=== PATIENT | female | born 1935 | race Caucasian/White ===

== ENCOUNTER 2017-07-11 17:28 | Inpatient (IN) | payer MEDICARE ==
[2017-07-11 17:43] VITALS: BMI 26.9
[2017-07-11] MEDS ORDERED: Sodium Chloride 0.9% 1,000 ML IV SCH (19:15)
[2017-07-11 19:33] LABS: BASO # 0.01 K/mm3 (0.0-2.0); BASO % 0.1 % (0.0-3.0); GRAN # 7.98 (1.4-6.5); GRAN % 85.3 % (50.0-68.0); HEMOGLOBIN 16.4 g/dL (12.0-16.0); LYMPH # 0.8 (1.2-3.4); LYMPH % 8.6 % (22.0-35.0); MEAN CELL VOLUME 89.9 fl (80.0-105.0); MEAN CORPUSCULAR HEMOGLOBIN 30.7 pg (25.0-35.0); MEAN CORPUSCULAR HGB CONC 34.1 g/dl (31.0-37.0); MEAN PLATELET VOLUME 10.1 fl (7.0-11.0); MONO # 0.6 (0.1-0.6); RBC 5.35 10^6/uL (3.5-6.1); RED CELL DISTRIBUTION WIDTH 15.8 % (11.5-14.5); WHITE BLOOD COUNT 9.4 10^3/ul (4.5-11.0)
[2017-07-11 19:45] LABS: ALB/GLOB RATIO 1.3 (1.1-1.8); ALBUMIN 4.4 g/dL (3.0-4.8); ALT/SGPT 30 U/L (7-56); AST/SGOT 30 U/L (14-36); BLOOD UREA NITROGEN 20 mg/dL (7-21); CALCIUM 10.7 mg/dL (8.4-10.5); GFR AFRICAN-AMERICAN > 60; GFR NON-AFRICAN AMERICAN > 60
[2017-07-11 19:49] LABS: TROPONIN I 0.02 ng/mL
--- NOTE | 2017-07-11 20:23 | ED PDOC ---
Arrival/HPI - General Chief Complaint: Shortness Of Breath Time Seen by Provider: 07/11/17 19:00 Historian: Patient, Family (son) - History of Present Illness Narrative History of Present Illness (Text): 07/11/17 18:16 A 82 year old female, whose past medical history includes CHF, pleural effusion , GI bleed, colon CA, and confusion, whom is accompanied by son, presents to the emergency department complaining of dry cough for 3-4 weeks. Per son, patient has had decreased appetite as well over the past several days. Patient denies any fever, chest pain, shortness of breath, or any other complaints. Denies any recent travel. PMD: Dr. Batista Time/Duration: Other (3-4 weeks with dry cough; decreased appetite over past several days) Past Medical History - Provider Review Nursing Documentation Reviewed: Yes - Travel History Have you recently traveled outside [place] w/in the past 3 mons?: No - Infectious Disease Hx of Infectious Diseases: None - Past Medical History Past Medical History: No Previous - Cardiac Hx Congestive Heart Failure: Yes - Pulmonary Hx Respiratory Disorders: (pleural effusion) - Neurological Hx Neurological Disorder: (confusion) - HEENT Hx HEENT Disorder: (right eye droop) - Hematological/Oncological Hx Blood Disorders: (blood transfusion 01/2015) Hx Cancer: Yes (colon ca) - Integumentary Other/Comment: redness rle, abd surgical dressing dry and intact - Musculoskeletal/Rheumatological Hx Falls: No - Gastrointestinal Hx Gastrointestinal Disorders: Yes (POOR APPETITE,ASCENDING COLON MASS, DIVERTICULOSIS,GI BLEED,SPLENOMEGALY,) Other/Comment: diverticulosis, gi bleed, appetite loss - Genitourinary/Gynecological Hx Genitourinary Disorders: Yes (SOME INCONTINENCY) - Psychiatric Hx Emotional Abuse: No Hx Physical Abuse: No Hx Substance Use: No - Surgical History Hx Cholecystectomy: Yes Other/Comment: hemicolectomy today 11/23/2014 - Anesthesia Hx Anesthesia Reactions: No Hx Malignant Hyperthermia: No - Suicidal Assessment Feels Threatened In Home Enviroment: No Family/Social History - Physician Review Nursing Documentation Reviewed: Yes Family/Social History: No Known Family HX Smoking Status: Unknown If Ever Smoked Hx Alcohol Use: No Hx Substance Use: No Allergies/Home Meds Allergies/Adverse Reactions: Allergies No Known Allergies Allergy (Verified 07/11/17 17:46) Home Medications: Home Meds Medication Instructions Recorded Confirmed Unobtainable 07/11/17 07/11/17 Review of Systems - Physician Review All systems were reviewed & negative as marked: Yes - Review of Systems Constitutional: absent: Fevers Respiratory: Cough (dry). absent: SOB Cardiovascular: absent: Chest Pain Gastrointestinal: Appetite Changes (deacreased appetite) Physical Exam Vital Signs Reviewed: Yes Vital Signs Temp Pulse Resp BP Pulse Ox 07/11/17 17:52 98.9 F 100 H 24 144/95 H 91 L Temperature: Afebrile Blood Pressure: Normal Pulse: Regular Respiratory Rate: Normal Appearance: Positive for: Well-Appearing Pain Distress: None Mental Status: Positive for: Alert and Oriented X 3 - Systems Exam Head: Present: Atraumatic, Normocephalic Pupils: Present: PERRL Extroacular Muscles: Present: EOMI Conjunctiva: Present: Normal Mouth: Present: Moist Mucous Membranes Neck: Present: Normal Range of Motion Respiratory/Chest: Present: Decreased Breath Sounds (diminshed breath sounds ( right side greater than left side)) Cardiovascular: Present: Regular Rate and Rhythm, Normal S1, S2. No: Murmurs Abdomen: Present: Normal Bowel Sounds. No: Tenderness, Distention, Peritoneal Signs Back: Present: Normal Inspection Upper Extremity: Present: Normal Inspection. No: Cyanosis, Edema Lower Extremity: Present: Normal Inspection. No: Edema Neurological: Present: GCS=15, CN II-XII Intact, Speech Normal Skin: Present: Warm, Dry, Normal Color. No: Rashes Psychiatric: Present: Alert, Oriented x 3, Normal Insight, Normal Concentration Medical Decision Making ED Course and Treatment: 07/11/17 18:20 Impression: 82 year old female with dry cough and decreased appetite. Physical exam shows diminished breath sounds(more so on right than left); no other acute findings on physical examination. Plan: -- EKG -- Chest X-ray -- Chest CT -- Labs -- Blood Culture -- Magnesium Sulfate IV Fluids -- Reassess and disposition Prior Visits: Notes and results from previous visits were reviewed. Patient was last seen in the emergency department on 11/27/2016 for shortness of breath. Patient was admitted. Progress Notes: EKG: Ordered, reviewed, and independently interpreted the EKG. Rate : 103 BPM Rhythm : Sinus tachycardia Interpretation : No ST-segment elevations or depressions, no T-wave inversions, normal intervals. Comparison : No previous EKG for comparison. 07/11/2017 21:25 Chest X-ray FINDINGS: Lungs: There is volume loss of the right lung, with mediastinal shift to the right. There is patchy consolidation of the right lung. Pleural space : Right pleural thickening or effusion is visualized. No pneumothorax. Heart: The right heart border is obscured. Mediastinum: See above. Bones/joints: Hypertrophic degenerative changes are noted withing the spine. Osteopenia. Upper abdomen: Surgical clips are visualized within the right upper quadrant of the abdomen. IMPRESSION: 1. There is volume loss of the right lung, with mediastinal shift to the right. 2. Right pleural thickening or effusion is visualized. 3. There is patchy consolidation of the right lung. Refer to the CT chest report from the same day for further discussion. Dictator: Anderson Negron MD 07/11/2017 21:[address] FINDINGS: Lungs: In the right perihilar region, there is a 4.8 x 4.4 cm mass, concerning for malignancy. There is mass effect and obstruction of the right main pulmonary bronchus. A consolidation is visualized within the right upper lobe of the lung with air bronchograms. Additional consolidations are seen within the right middle lobe and right lower lobe. These likely represent areas of atelectatic change or infiltrates. Some of the patchy consolidations within the right lower lobe are somewhat nodular. There is volume loss in the right lung, with mediastinal shift to the right. Within the left upper lobe medially on series 4 and 52, there is a 4 mm nodule. On series 4 and 36 within the left upper lobe, a 7 mm nodule is identified. There is a 7 mm nodule in the left upper lobe on series 4 image 29. There is a 3 mm nodule in the left upper lobe on series 4 image 51. Mild atelectatic change is visualized within the lingula. Pleural space: There is a small right pleural effusion. No pneumothorax. Heart: No cardiomegaly. No significant pericardial effusion. Mediastinum: There is a small hiatal hernia. Bones/joints: There is a nonspecific sclerotic lesion within the T11 vertebral body. An osteoblastic metastasis cannot be excluded. Heterogeneously hypodense lesions are identified within the T7 and T9 vertebral bodies, typical for hemangiomas. Vasculature: No thoracic aortic aneurysm. Lymph nodes: There is bulky mediastinal lymphadenopathy. A subcarinal lymph node measures 4.8 x 3.5 cm. This is suggestive of malignant lymphadenopathy. Liver: Venous varicosities are identified within the upper abdomen. There is increased nodularity of the hepatic contour, suggestive of cirrhosis. A cluster of calcifications is visualized within the right hepatic lobe. Gallbladder and bile ducts: Cholecystectomy clips are visualized. Spleen: There is splenomegaly. IMPRESSION: 1. In the right perihilar region, there is a 4.8 x 4.4 cm mass, concerning for malignancy. There is mass effect and obstruction of the right main pulmonary bronchus. PET/CT is recommended. 2. A consolidation is visualized within the right upper lobe of the lung with air bronchograms. Additional consolidations are seen within the right middle lobe and right lower lobe. These likely represent areas of atelectatic change or infiltrates. Some of the patchy consolidations within the right lower lobe are somewhat nodular. 3. There is volume loss in the right lung, with mediastinal shift to the right. 4. There is a small right pleural effusion. 5. Multiple nodules are visualized within the left lung. Metastatic nodules are considered. 6. There is bulky mediastinal lymphadenopathy. This is suggestive of malignant lymphadenopathy. 7. There is splenomegaly. 8. Venous varicosities are identified within the upper abdomen. There is increased nodularity of the hepatic contour, suggestive of cirrhosis. 9. There is a nonspecific sclerotic lesion within the T11 vertebral body. An osteoblastic metastasis cannot be excluded. 10. Incidental/non-acute findings are described above. Dictator: Anderson Negron MD 07/11/17 23:[address] Freeman, who is aware and agrees with plan. Accepts pt in to his service. Pt will be admitted to [facility] for lung mass. - Lab Interpretations Lab Results: 07/11/17 17:45 07/11/17 17:45 Lab Results 07/11/17 17:45: Sodium 141, Potassium 4.2, Chloride 105, Carbon Dioxide 24, Anion Gap 17, BUN 20, Creatinine 0.8, Est GFR ( Amer) > 60, Est GFR (Non- Af Amer) > 60, Random Glucose 123 H, Calcium 10.7 H, Total Bilirubin 2.4 H, AST 30, ALT 30, Alkaline Phosphatase 73, Lactate Dehydrogenase 660, Total Creatine Kinase 25 L, Troponin I 0.02 D, Total Protein 7.8, Albumin 4.4, Globulin 3.5, Albumin/Globulin Ratio 1.3 07/11/17 17:45: WBC 9.4 D, RBC 5.35, Hgb 16.4 H, Hct 48.1 H, MCV 89.9, MCH 30.7 , MCHC 34.1, RDW 15.8 H, Plt Count 176, MPV 10.1, Gran % 85.3 H, Lymph % (Auto) 8.6 L, [place] % (Auto) 6.0, Eos % (Auto) 0.0 L, Baso % (Auto) 0.1, Gran # 7.98 H, Lymph # 0.8 L, [place] # 0.6, Eos # 0.0, Baso # 0.01 I have reviewed the lab results: Yes - RAD Interpretation Radiology Orders: 07/11/17 19:10 CHEST PORTABLE [RAD] Stat 07/11/17 20:58 CHEST W/O CONTRAST [CT] Stat - Medication Orders Current Medication Orders: Sodium Chloride (Sodium Chloride 0.9%) 1,000 mls @ 100 mls/hr IV .Q10H STEWART Last Admin: 07/11/17 19:29 Dose: 100 mls/hr eMAR Start Stop Document 07/11/17 19:29 JOKeren (Rec: 07/11/17 19:29 [facility]-[id number]) Intravenous Solution Start Date 07/11/17 Start Time 19:29 - Scribe Statement The provider has reviewed the documentation as recorded by the Aura Chow Provider Scribe Attestation: All medical record entries made by the Aura were at my direction and personally dictated by me. I have reviewed the chart and agree that the record accurately reflects my personal performance of the history, physical exam, medical decision making, and the department course for this patient. I have also personally directed, reviewed, and agree with the discharge instructions and disposition. Disposition/Present on Arrival - Present on Arrival Any Indicators Present on Arrival: No History of DVT/PE: No History of Uncontrolled Diabetes: No Urinary Catheter: No History of Decub. Ulcer: No History Surgical Site Infection Following: None - Disposition Have Diagnosis and Disposition been Completed?: Yes Diagnosis: Pulmonary mass Disposition: HOSPITALIZED Disposition Time: 22:00 Patient Problems: Current Active Problems Problem Status Onset Pulmonary mass Acute Condition: GUARDED Referrals: Juvenal Batista MD [Primary Care Provider] - Follow up with primary Forms: [employer] ([place])
--- NOTE | 2017-07-11 21:26 | RAD ---
EXAM: XR Chest, 1 View EXAM DATE/TIME: 07/11/2017 7:10 PM CLINICAL HISTORY: The patient age is 82 years old and is female; Signs and symptoms; Shortness of breath; Additional info: R/O infiltrate Facility exam id and description: Rad chest p chest portable TECHNIQUE: Frontal view of the chest. COMPARISON: No relevant prior studies available. FINDINGS: Lungs: There is volume loss of the right lung, with mediastinal shift to the right. There is patchy consolidation of the right lung. Pleural space: Right pleural thickening or effusion is visualized. No pneumothorax. Heart: The right heart border is obscured. Mediastinum: See above. Bones/joints: Hypertrophic degenerative changes are noted within the spine. Osteopenia. Upper abdomen: Surgical clips are visualized within the right upper quadrant of the abdomen. IMPRESSION: 1. There is volume loss of the right lung, with mediastinal shift to the right. 2. Right pleural thickening or effusion is visualized. 3. There is patchy consolidation of the right lung. Refer to the CT chest report from the same day for further discussion.
--- NOTE | 2017-07-11 21:49 | CT ---
EXAM: CT Chest Without Intravenous Contrast EXAM DATE/TIME: 07/11/2017 8:58 PM CLINICAL HISTORY: The patient age is 82 years old and is female; Signs and symptoms; Shortness of breath; Additional info: Follow up to cxr done today Facility exam id and description: Ct chests chest w/o contrast TECHNIQUE: Axial computed tomography images of the chest without intravenous contrast. All CT scans at this facility use one or more dose reduction techniques, viz.: automated exposure control; ma/kV adjustment per patient size (including targeted exams where dose is matched to indication; i.e. head); or iterative reconstruction technique. Coronal and sagittal reformatted images were created and reviewed. COMPARISON: DX - CHEST PORTABLE 2017-07-11 19:49 FINDINGS: Lungs: In the right perihilar region, there is a 4.8 x 4.4 cm mass, concerning for malignancy. There is mass effect and obstruction of the right main pulmonary bronchus. A consolidation is visualized within the right upper lobe of the lung with air bronchograms. Additional consolidations are seen within the right middle lobe and right lower lobe. These likely represent areas of atelectatic change or infiltrates. Some of the patchy consolidations within the right lower lobe are somewhat nodular. There is volume loss in the right lung, with mediastinal shift to the right. Within the left upper lobe medially on series 4 and 52, there is a 4 mm nodule. On series 4 and 36 within the left upper lobe, a 7 mm nodule is identified. There is a 7 mm nodule in the left upper lobe on series 4 image 29. There is a 3 mm nodule in the left upper lobe on series 4 image 51. Mild atelectatic change is visualized within the lingula. Pleural space: There is a small right pleural effusion. No pneumothorax. Heart: No cardiomegaly. No significant pericardial effusion. Mediastinum: There is a small hiatal hernia. Bones/joints: There is a nonspecific sclerotic lesion within the T11 vertebral body. An osteoblastic metastasis cannot be excluded. Heterogeneously hypodense lesions are identified within the T7 and T9 vertebral bodies, typical for hemangiomas. Vasculature: No thoracic aortic aneurysm. Lymph nodes: There is bulky mediastinal lymphadenopathy. A subcarinal lymph node measures 4.8 x 3.5 cm. This is suggestive of malignant lymphadenopathy. Liver: Venous varicosities are identified within the upper abdomen. There is increased nodularity of the hepatic contour, suggestive of cirrhosis. A cluster of calcifications is visualized within the right hepatic lobe. Gallbladder and bile ducts: Cholecystectomy clips are visualized. Spleen: There is splenomegaly. IMPRESSION: 1. In the right perihilar region, there is a 4.8 x 4.4 cm mass, concerning for malignancy. There is mass effect and obstruction of the right main pulmonary bronchus. PET/CT is recommended. 2. A consolidation is visualized within the right upper lobe of the lung with air bronchograms. Additional consolidations are seen within the right middle lobe and right lower lobe. These likely represent areas of atelectatic change or infiltrates. Some of the patchy consolidations within the right lower lobe are somewhat nodular. 3. There is volume loss in the right lung, with mediastinal shift to the right. 4. There is a small right pleural effusion. 5. Multiple nodules are visualized within the left lung. Metastatic nodules are considered. 6. There is bulky mediastinal lymphadenopathy. This is suggestive of malignant lymphadenopathy. 7. There is splenomegaly. 8. Venous varicosities are identified within the upper abdomen. There is increased nodularity of the hepatic contour, suggestive of cirrhosis. 9. There is a nonspecific sclerotic lesion within the T11 vertebral body. An osteoblastic metastasis cannot be excluded. 10. Incidental/non-acute findings are described above.
[2017-07-12] MEDS ORDERED: Albuterol-Ipratrop 3 mg / 0.5 (3 ml) UD IH PRN (06:56)
[2017-07-12] MEDS ORDERED: Azithromycin 500 MG in Sodium Chloride 0.9% 250 ML IVPB SCH (07:00)
[2017-07-12] MEDS: Albuterol-Ipratrop 3 mg / 0.5 (3 ml) UD IH SCH ×3 (07:35→19:40)
[2017-07-12] MEDS: Budesonide 0.5 mg/2 ml Inhal Susp UD IH SCH (07:36)
--- NOTE | 2017-07-12 07:43 | CON ---
DATE: 07/12/2017 PULMONARY CONSULTATION REASON FOR CONSULTATION: Lung mass. REFERRING PHYSICIAN: Geovani Freeman MD IDENTIFICATION DATA: History is obtained via extensive discussion with the night nurse. I have also reviewed the chart at length. The patient does not appear to be an adequate historian at this point in time. HISTORY OF PRESENT ILLNESS: The patient is a chronically ill 82-year-old female, with past medical history significant for advanced colon cancer, status post right hemicolectomy, chronic right pleural effusion and cirrhosis with splenomegaly, who presents to [facility] with worsening shortness of breath at rest, dyspnea on exertion, and cough for the past 3 weeks. There is no history of significant sputum production. There is no history of chest pain, coughing up of blood, or chest pain - made worse with deep respirations. There is no history of temperatures, chills or infectious exposure. There is no history of night sweats. There is a history of weight loss with decreased appetite as of late. No history of calf pains. No history of syncope or diaphoresis. No history of recent travel or trauma. REVIEW OF SYSTEMS: There is a note in the Emergency Room chart that the patient has been confused recently. No nausea, vomiting or diarrhea. No acute urinary symptoms. No new musculoskeletal complaints. Rest of the review of systems is negative. ALLERGIES: NO KNOWN ALLERGIES. SOCIAL HISTORY: Positive for tobacco, and negative for alcohol. FAMILY HISTORY: No inheritable diseases. HOME MEDICATIONS: Not listed in the current chart. PHYSICAL EXAMINATION: GENERAL: The patient is very weak appearing and mildly cachectic. She is mildly short of breath, but in no acute distress. VITAL SIGNS: Temperature is 97.8, pulse this morning is 88, respiratory rate is 20/22, and blood pressure is 155/93. Oxygen saturation on nasal cannula is 96%, on room air is 89%. HEENT: Normocephalic and atraumatic. No JVD. CARDIOVASCULAR: Systolic ejection murmur at the lower left sternal border. No S3 gallop. LUNGS: Decreased breath sounds at both bases. Scattered bilateral rhonchi. No wheezing. EXTREMITIES: No clubbing, cyanosis or edema. Calves are nontender to palpation. GASTROINTESTINAL: Abdomen is soft, nontender and nondistended. Bowel sounds are positive. SKIN: No acute rash. NEUROLOGIC: Exam is limited at the present time. PERTINENT LABORATORY DATA: CT scan of the chest was done yesterday and reviewed. There is a large right upper lobe lung mass which extends almost to the pleural surface. It also appears that the mass encroaches on the right mainstem bronchus-- probably by external compression. There are scattered infiltrates and opacities throughout the right lung. There are also multiple nodules in the left lung. There is a bulky mediastinal lymphadenopathy. Lastly, there is a nonspecific sclerotic lesion involving the T11 vertebrae, possible metastasis. CBC: White count of 9.4, hemoglobin of 16.4, hematocrit of 48.1, and platelets of 176,000. Complete metabolic profile: Glucose of 123, calcium of 10.7, and bilirubin of 2.4. Rest of the metabolic profile is within normal limits. IMPRESSION 1. Probable advanced lung cancer. 2. Mild bronchospasm. 3. Rule out underlying pneumonia. 4. History of advanced colon cancer, status post hemicolectomy. PLAN: Again, I did discuss the case with the night nurse at length. The patient presents to [facility] with a three-week history of worsening pulmonary symptoms. In addition, there is also history of recent confusion and weight loss. I did review the CT scan of the chest - noted above. The CT scan is consistent with advanced/extensive lung cancer. On physical exam, there is mild bronchospasm noted. I will start the patient on nebulizer treatments and inhaled steroids. I will also place the patient on antibiotic therapy(for now) and order a procalcitonin. Unfortunately,the overall status/prognosis for this weak elderly patient, is very poor. I will discuss the case with Dr. Freeman at length this morning. We will of course discuss the case with the family and see what their wishes are. The lung mass is accessible via CT scan guided lung biopsy. However, given the patient's age, appearance, and CT scan findings, I would certainly consider adopting a conservative approach at this point in time. Again, I will discuss the above with Dr. Freeman later this morning. Thank you very much for this pulmonary consultation. Harry Campos MD [facility] # [id number] MTDD
[2017-07-12] MEDS: cefTRIAXone 1 gm 1 GM/100 ML BAG IVPB SCH (10:55)
[2017-07-12] MEDS: Azithromycin 500MG/NS 250ml 500 MG/250 ML BAG IVPB SCH (10:55)
[2017-07-12 15:24] LABS: PH,URINE 5.5 (4.7-8.0); URINE BILIRUBIN MODERATE (NEGATIVE); URINE BLOOD SMALL (NEGATIVE); URINE GLUCOSE (UA) NEGATIVE (NEGATIVE); URINE LEUKOCYTE ESTERASE SMALL Leu/uL (NEGATIVE); URINE NITRATE POSITIVE (NEGATIVE); URINE PROTEIN 100 mg/dL (<30 mg/dL)
[2017-07-12 15:26] LABS: URINE APPEARANCE TURBID (CLEAR); URINE COLOR YELLOW (YELLOW)
[2017-07-12 15:27] LABS: URINE BACTERIA MANY (NEG); URINE RBC 0 - 2 /hpf (0-2)
--- NOTE | 2017-07-12 15:39 | CP.PCM.CON ---
History of Present Illness - History of Present Illness History of Present Illness: 82 y/o F with PMH of colon cancer s/p right hemicolectomy, chronic right pleural effusion, and Cirrhosis with splenomegaly presents with 3 week history of dyspnea. Patient is romanian speaking only. Son is at bedside for translation , history also obtained from previous medical records. Son states patient had a cold several weeks ago and improved, but shortness of breath became worse over this time. She also developed dyspnea on exertion. Patient was noted to be in respiratory distress yesterday so she was brought into the ED. Patient has been following with Dr. Paige outpatient. Previous PET CT did not demonstrate new lesions. Denies chest pain, shortness of breath, nausea, vomiting, diarrhea, fever, chills, dysuria, headache, fever, chills. PMH: colon cancer s/p right hemicolectomy, chronic right pleural effusion, and Cirrhosis with splenomegaly Surgical Hx: Right hemicolectomy Family Hx: Noncontributory Social Hx: Former smoker, denies alcohol or illicit drug use Medications: Reviewed, as per MAR Allergies: NKDA Review of Systems - Review of Systems Review of Systems: 12 point ROS as per HPI, otherwise negative Past Patient History - Infectious Disease Hx of Infectious Diseases: None - Past Social History Smoking Status: Never Smoked - CARDIAC Hx Congestive Heart Failure: Yes - PULMONARY Hx Respiratory Disorders: (pleural effusion) - NEUROLOGICAL Hx Neurological Disorder: (confusion) - HEENT Hx HEENT Problems: (right eye droop) - HEMATOLOGICAL/ONCOLOGICAL Hx Blood Disorders: (blood transfusion 01/2015) Hx Cancer: Yes (colon ca) - INTEGUMENTARY Other/Comment: redness rle, abd surgical dressing dry and intact - MUSCULOSKELETAL/RHEUMATOLOGICAL Hx Falls: No - GASTROINTESTINAL Hx Gastrointestinal Disorders: Yes (POOR APPETITE,ASCENDING COLON MASS, DIVERTICULOSIS,GI BLEED,SPLENOMEGALY,) Other/Comment: diverticulosis, gi bleed, appetite loss - GENITOURINARY/GYNECOLOGICAL Hx Genitourinary Disorders: Yes (SOME INCONTINENCY) - PSYCHIATRIC Hx Emotional Abuse: No Hx Physical Abuse: No - SURGICAL HISTORY Hx Cholecystectomy: Yes Other/Comment: hemicolectomy today 11/23/2014 - ANESTHESIA Hx Anesthesia Reactions: No Hx Malignant Hyperthermia: No Meds Allergies/Adverse Reactions: Allergies Allergy/AdvReac Type Severity Reaction Status Date / Time No Known Allergies Allergy Verified 07/11/17 17:46 - Medications Medications: Current Medications Albuterol/Ipratropium (Duoneb 3 Mg/0.5 Mg (3 Ml) Ud) 3 ml IH [id number] [facility] Last Admin: 07/12/17 13:29 Dose: 3 ml Albuterol/Ipratropium (Duoneb 3 Mg/0.5 Mg (3 Ml) Ud) 3 ml IH Q2H PRN PRN Reason: Shortness of Breath Budesonide (Pulmicort Respules) 0.5 mg IH [id number] [facility] Last Admin: 07/12/17 07:36 Dose: 0.5 mg Sodium Chloride (Sodium Chloride 0.9%) 1,000 mls @ 100 mls/hr IV .Q10H [facility] Last Admin: 07/11/17 19:29 Dose: 100 mls/hr Ceftriaxone Sodium (Rocephin 1 Gram Ivpb) 1 gm in 100 mls @ 100 mls/hr IVPB DAILY [facility] PRN Reason: Protocol Last Admin: 07/12/17 10:55 Dose: 100 mls/hr Azithromycin (Zithromax 500mg In Ns) 500 mg in 250 mls @ 167 mls/hr IVPB DAILY [facility] Last Admin: 07/12/17 10:55 Dose: 167 mls/hr Physical Exam - Constitutional Appears: Non-toxic, No Acute Distress - Head Exam Head Exam: ATRAUMATIC, NORMAL INSPECTION, NORMOCEPHALIC - Eye Exam Eye Exam: EOMI - ENT Exam ENT Exam: Mucous Membranes Moist, Normal Exam - Neck Exam Neck exam: Positive for: Normal Inspection. Negative for: Lymphadenopathy - Respiratory Exam Respiratory Exam: Decreased Breath Sounds, NORMAL BREATHING PATTERN. absent: Rhonchi, Wheezes - Cardiovascular Exam Cardiovascular Exam: RRR, +S1, +S2 - GI/Abdominal Exam GI & Abdominal Exam: Normal Bowel Sounds, Soft. absent: Tenderness - Extremities Exam Extremities exam: Positive for: pedal edema (Trace b/l edema ). Negative for: calf tenderness - Neurological Exam Neurological exam: Alert, CN II-XII Intact, Oriented x3 - Psychiatric Exam Psychiatric exam: Normal Affect, Normal Mood - Skin Skin Exam: Intact, Normal Color, Warm Results - Vital Signs Recent Vital Signs: Last Vital Signs Temp 99.0 F 07/12/17 07:30 Pulse 98 H 07/12/17 07:30 Resp 24 07/12/17 07:30 BP 160/94 H 07/12/17 07:30 Pulse Ox 94 L 07/12/17 07:30 - Labs Result Diagrams: 07/11/17 17:45 07/11/17 17:45 Labs: Laboratory Results - last 24 hr 07/12/17 14:45 Urine Color Yellow Urine Appearance Turbid Urine pH 5.5 Ur Specific [place] >= 1.030 Urine Protein 100 H Urine Glucose (UA) Negative Urine Ketones 15 H Urine Blood Small H Urine Nitrate Positive H Urine Bilirubin Moderate H Urine Urobilinogen 1.0 H Ur Leukocyte Esterase Small H Urine RBC 0 - 2 Urine WBC 10 - 15 Urine Bacteria Many Assessment & Plan - Assessment and Plan (Free Text) Plan: 82 y/o F with PMH of colon cancer s/p right hemicolectomy, chronic right pleural effusion, and Cirrhosis with splenomegaly presents with 3 week history of dyspnea. CT chest in the ED demonstrated new 4.4 x 4.8 cm right perihilar mass, with multiple left nodules, and a sclerotic lesion on T11. After discussion with patients son, he will speak to family regarding further treatment for his Mother. Will consult IR for lung liver biopsy, and proceed as long as patient and family are agreeable. Will likely need a new PET scan as an outpatient. Continue current medical regimen. Plan discussed with Dr. Paige. Nafisa, PGY-2
--- NOTE | 2017-07-12 18:17 | CARD ---
APPROVED REPORT EKG Measurement Heart [id number] <Conclusion> Sinus tachycardia T wave abnormality, consider inferior ischemia Abnormal ECG
--- NOTE | 2017-07-13 00:05 | HP ---
CHIEF COMPLAINT AND HISTORY OF PRESENT ILLNESS: This is an 82-year-old female who is coming into the hospital because of shortness of breath. The patient has a past medical history of colon cancer, GI bleed, and pleural effusion. The patient says that she has been having more shortness of breath. She also has a dry cough for the past 3 weeks. Her appetite has been poor. She has not been able to eat well. Most of the information has been taken from talking to the patient's son. She has had a right hemicolectomy because of her colon cancer. She has a chronic right pleural effusion with cirrhosis and splenomegaly. She had been followed by Dr. Paige. The patient had PET scan and CT scan that did not show any lesions. The patient denies any fever or chills. No nausea. No abdominal pain. No dysuria or frequency. She does say that she is fatigued. REVIEW OF SYSTEMS: All other review of symptoms are within normal limits except as mentioned. SOCIAL HISTORY: She is a former smoker. She denies alcohol or dug use. ALLERGIES: NO KNOWN DRUG ALLERGIES. HOME MEDICATIONS: Have been reviewed on the [facility]. PAST SURGICAL HISTORY: She had a right colectomy. PAST MEDICAL HISTORY: 1. Colon cancer with right hemicolectomy. 2. Chronic right pleural effusion. 3. Cirrhosis. 4. Splenomegaly. PHYSICAL EXAMINATION: VITAL SIGNS: Temperature is 99, pulse of 98, blood pressure 160/94, respirations 24, and O2 saturation 94%. Height is 5 feet 2 inches, weight is 147 pounds, and BMI is 26.9. GENERAL: The patient lying in bed, uncomfortable, and in no acute distress. HEENT: Atraumatic and normocephalic. Anicteric sclerae. Moist mucosa. [place] conjunctivae. No oral lesions. NECK: No JVD, anterior and posterior adenopathy, thyromegaly, or bruits. CARDIOVASCULAR: S1 and S2 regular. No murmur, rubs, or gallop. LUNGS: Clear to auscultation bilaterally. No wheezes, rales, or rhonchi. ABDOMEN: Bowel sounds are positive. Soft, nontender and nondistended. No hepatosplenomegaly. No rebound and no guarding EXTREMITIES: No cyanosis, clubbing, or edema. NEUROLOGIC: No facial asymmetry. Tongue is midline. No uvula deviation. Power is 5/5 upper extremity and lower extremity. Sensation intact in upper extremity and lower extremity. PSYCHIATRIC: The patient is alert, awake and oriented x1. She has tangential thoughts. She is not able to focus and concentrate on questions. GENITOURINARY: No CVA tenderness. VASCULAR: 2+ pulses in the carotid pulses and pedal pulses. SKIN: No erythema or nodules SPINE: Shows normal curvature. LABORATORY DATA: White count of 9.4 and hemoglobin 16.4. Chemistries showed a creatinine of 0.8, alkaline phosphatase is 73, and calcium is 10.7. Urine shows blood that is small, nitrites are positive, and bilirubin is moderate. She has a chest x-ray done shows volume loss in the right lung with mediastinal shift to the right with a right pleural thickening, pleural effusion with the patchy consolidation of the right lung. CT chest done shows right perihilar 4.8 x 4.4 cm mass. There is also consolidation with the right middle lobe and right lower lobe. There is bulky mediastinal adenopathy. ASSESSMENT: 1. Right lung mass 4.8 x 4.4 cm. 2. Mediastinal adenopathy. 3. Splenomegaly. 4. Cirrhosis. 5. T11 vertebral lesion. 6. History of colon cancer. 7. Right pleural effusion, chronic. PLAN: The patient is admitted to the hospital. She has a new lesion on the chest on CT. I have spoken to Dr. Campos and I also spoke with Dr. Malvin Robles. He is able to biopsy the lung lesions. The patient is on IV fluids. I will decrease the patient's IV fluids. I will discontinue the patient's IV fluids. The patient's son is at the bedside. I just speak with him regarding the patient's lung mass. He is not interested in pursuing rest of treatments. So, I do not think biopsy is necessary. The patient has been placed on IV antibiotics and is on nebulizer treatments. The patient's son says that his goal of care for his mother is to improve her breathing and discharge her home. The patient herself would prefer to go home. I have discontinued the blood cultures. The patient's family does not wish to have aggressive intervention. I will get palliative care to evaluate the patient as well. Overall prognosis is poor. Geovani Freeman MD
[2017-07-13] MEDS: Albuterol-Ipratrop 3 mg / 0.5 (3 ml) UD IH SCH ×4 (01:13→20:15)
[2017-07-13] MEDS: Budesonide 0.5 mg/2 ml Inhal Susp UD IH SCH ×3 (07:43→20:16)
--- NOTE | 2017-07-13 08:47 | PN ---
DATE: 07/13/2017 SUBJECTIVE: The patient has no complaints of any chest pain. No shortness of breath. No headaches or dizziness. She says her breathing is better. PHYSICAL EXAMINATION: VITAL SIGNS: Temperature is 98.4, pulse of 99, blood pressure is 151/99, respirations 24. GENERAL: The patient is lying in bed, flat, comfortable. HEENT: No oral lesion. Anicteric sclerae. Moist mucosa. NECK: No JVD, adenopathy, or thyromegaly. CARDIOVASCULAR: S1 and S2, regular. No murmurs, rubs, or gallops. LUNGS: Clear to auscultation bilaterally. No wheeze, rales, or rhonchi. ABDOMEN: Bowel sounds are positive, soft, nontender and nondistended. EXTREMITIES: No cyanosis, clubbing or edema. ASSESSMENT: 1. Right lung mass, 4.8 x 4.4 cm. 2. Mediastinal adenopathy. 3. Pneumonia/bronchitis. 4. Splenomegaly. 5. Cirrhosis. 6. T11 vertebral fracture. 7. History of colon cancer. 8. Right pleural effusion, chronic. PLAN: The patient is currently on nebulizer treatments. She is receiving Rocephin for antibiotics. The patient is on Xanax. The patient is on a heart-healthy diet. The patient is currently comfortable. We will continue with the current treatment. I did speak to Dr. Campos regarding the case. Geovani Freeman MD
--- NOTE | 2017-07-13 10:13 | PN ---
DATE: 07/13/2017 PULMONARY NOTE SUBJECTIVE: The patient appears more comfortable this morning. She is not short of breath at rest. OBJECTIVE: VITALS: Temperature is 97.4, pulse this morning 88, respirations 16/18, blood pressure 141/83. Oxygen saturation on nasal cannula is 98% (discussed with nurse). HEENT: Normocephalic, atraumatic. No JVD. CARDIOVASCULAR: Systolic ejection murmur at the lower left sternal border. No S3 gallop. LUNGS: Decreased breath sounds at the bases. Much less rhonchi. No wheezing. EXTREMITIES: No clubbing, cyanosis or edema. Calves are nontender to palpation. GI: Abdomen is soft, nontender, and nondistended. Bowel sounds are positive. SKIN: No acute rash. NEUROLOGIC: Limited at the present time. IMPRESSION: 1. Probable advanced lung cancer. 2. Mild bronchospasm. 3. Rule out underlying pneumonia. 4. History of advanced colon cancer, status post hemicolectomy. PLAN: The patient appears more comfortable this morning. She is not short of breath at rest. She does appear very weak. I did discuss the case with the night nurse at length. The night nurse stated the patient had a good night. On physical exam, there is certainly less bronchospasm noted. I will continue with the current nebulizer treatments and inhaled steroids for now. Procalcitonin done yesterday is negative. However, I will continue with the intravenous antibiotic therapy for now. I did discuss the case with Dr. Freeman yesterday at length. I also reviewed the note by Dr. Freeman. Apparently, Dr. Freeman did speak with the son at length. The son/family are NOT interested in pursuing the diagnosis of the patient's lung mass. Apparently, the son did state that his goal of care for his mother is to improve her breathing and then discharge her home. Given her age, fragility, and CAT scan findings, I do feel that this is a very reasonable approach. The clinical status of the patient is certainly improved - compared to the initial presentation. However, again, the future status/prognosis for this patient is very poor. Marielena Layton (Palliative Care) has been also called on the case. I will discuss the case with Dr. Freeman again this morning. Harry Campos MD [facility]
--- NOTE | 2017-07-13 11:26 | CP.PCM.CON ---
History of Present Illness - History of Present Illness History of Present Illness: Palliative consult requested by Dr Jackie Freeman Reason: Goals of care/advance care planning 82 year old female with history of colon cancer ,GI bleed and pleural effusion who presented with increased shorteners of breath and dry cough. Family also reports appetite. CT of chest showed right perhilar lug mass, 4.8X 4.4 cm, multiple pulmonary nodules,mediastinal adenopathy, T11 vertebral lesion, splenomegaly,cirrhosis. PMHx: advanced colon cancer s/p right hemicolectomy, right pleural effusion,GI bleed, cirrhosis, splenomegaly, CHF. Social History: Former smoker, no alcohol or drug use. ,lives with spouse Family History: Non contributory. Advance Care Planning: The patient does not have an Advanced Directive. Review of Systems: As per HPI, otherwise negative review Past Patient History - Infectious Disease Hx of Infectious Diseases: None - Past Social History Smoking Status: Never Smoked - CARDIAC Hx Congestive Heart Failure: Yes - PULMONARY Hx Respiratory Disorders: (pleural effusion) - NEUROLOGICAL Hx Neurological Disorder: (confusion) - HEENT Hx HEENT Problems: (right eye droop) - HEMATOLOGICAL/ONCOLOGICAL Hx Blood Disorders: (blood transfusion 01/2015) Hx Cancer: Yes (colon ca) - INTEGUMENTARY Other/Comment: redness rle, abd surgical dressing dry and intact - MUSCULOSKELETAL/RHEUMATOLOGICAL Hx Falls: No - GASTROINTESTINAL Hx Gastrointestinal Disorders: Yes (POOR APPETITE,ASCENDING COLON MASS, DIVERTICULOSIS,GI BLEED,SPLENOMEGALY,) Other/Comment: diverticulosis, gi bleed, appetite loss - GENITOURINARY/GYNECOLOGICAL Hx Genitourinary Disorders: Yes (SOME INCONTINENCY) - PSYCHIATRIC Hx Emotional Abuse: No Hx Physical Abuse: No - SURGICAL HISTORY Hx Cholecystectomy: Yes Other/Comment: hemicolectomy today 11/23/2014 - ANESTHESIA Hx Anesthesia Reactions: No Hx Malignant Hyperthermia: No Meds Allergies/Adverse Reactions: Allergies Allergy/AdvReac Type Severity Reaction Status Date / Time No Known Allergies Allergy Verified 07/11/17 17:46 - Medications Medications: Current Medications Albuterol/Ipratropium (Duoneb 3 Mg/0.5 Mg (3 Ml) Ud) 3 ml IH [id number] Last Admin: 07/13/17 07:42 Dose: 3 ml Albuterol/Ipratropium (Duoneb 3 Mg/0.5 Mg (3 Ml) Ud) 3 ml IH Q2H PRN PRN Reason: Shortness of Breath Alprazolam (Xanax) 0.25 mg PO Q6H PRN; Protocol PRN Reason: Anxiety Stop: 07/19/17 16:31 Last Admin: 07/13/17 00:19 Dose: 0.25 mg Budesonide (Pulmicort Respules) 0.5 mg IH [id number] [facility] Last Admin: 07/13/17 07:43 Dose: 0.5 mg Ceftriaxone Sodium (Rocephin 1 Gram Ivpb) 1 gm in 100 mls @ 100 mls/hr IVPB DAILY [facility] PRN Reason: Protocol Last Admin: 07/12/17 10:55 Dose: 100 mls/hr Azithromycin (Zithromax 500mg In Ns) 500 mg in 250 mls @ 167 mls/hr IVPB DAILY [facility] Last Admin: 07/12/17 10:55 Dose: 167 mls/hr Physical Exam - Constitutional Appears: Cachectic, Chronically Ill - Head Exam Head Exam: NORMAL INSPECTION - Eye Exam Eye Exam: Normal appearance, PERRL - ENT Exam ENT Exam: Mucous Membranes Moist, Normal Oropharynx - Neck Exam Neck exam: Positive for: Normal Inspection - Respiratory Exam Respiratory Exam: Decreased Breath Sounds, Rhonchi - Cardiovascular Exam Cardiovascular Exam: REGULAR RHYTHM, +S1, +S2 - GI/Abdominal Exam GI & Abdominal Exam: Normal Bowel Sounds, Soft - Extremities Exam Extremities exam: Positive for: normal inspection, pedal pulses present - Back Exam Back exam: NORMAL INSPECTION - Neurological Exam Neurological exam: Alert Additional comments: oriented to place and self - Skin Skin Exam: Dry, Pallor Results - Vital Signs Recent Vital Signs: Last Vital Signs Temp 98.4 F 07/13/17 07:30 Pulse 99 H 07/13/17 07:30 Resp 24 07/13/17 07:30 BP 151/99 H 07/13/17 07:30 Pulse Ox 100 07/13/17 07:30 - Labs Result Diagrams: 07/13/17 12:35 07/13/17 12:35 Labs: Laboratory Results - last 24 hr 07/12/17 07/12/17 07/12/17 08:40 14:45 15:54 POC Glucose (mg/dL) 123 H Procalcitonin 0.07 L Urine Color Yellow Urine Appearance Turbid Urine pH 5.5 Ur Specific [place] >= 1.030 Urine Protein 100 H Urine Glucose (UA) Negative Urine Ketones 15 H Urine Blood Small H Urine Nitrate Positive H Urine Bilirubin Moderate H Urine Urobilinogen 1.0 H Ur Leukocyte Esterase Small H Urine RBC 0 - 2 Urine WBC 10 - 15 Urine Bacteria Many Assessment & Plan - Assessment and Plan (Free Text) Assessment: 82 year old female with history of colon cancer,cirrhosis,splenomegaly and chronic right pleural effusion who is admitted with shortness of breath, decreased appetite, dry cough. New findings of right lung mass, mediastinal adenopathy, pleural pulmonary nodules and T1 vertebral lesion. The patient is alert, anxious. Speaks primarily Greek but understands and can communicate in [place]. She has no complaints and states that she wants to go home. I spoke at length with patients son, Jonathan. Son has been kept updated by Dr. Freeman and Dr. Paige. He understands patients medical condition and prognosis. Goals of care and advance care planning discussion ensued. The patient does not have an advanced directive. Benefits and burdens of resuscitative measures explained. Questions answered. Son understands ramifications of resuscitation. Son intends to speak with his father and siblings about resuscitation status. We briefly spoke about future goals of care. Palliative options explained. Son will also speak with family about this option as well. Time spent in goals of care and advance care planning with son, 40 minutes, Plan: Palliative support in establishing goals of care Advance care planning
[2017-07-13] MEDS: cefTRIAXone 1 gm 1 GM/100 ML BAG IVPB SCH (11:27)
[2017-07-13] MEDS: Azithromycin 500MG/NS 250ml 500 MG/250 ML BAG IVPB SCH (11:28)
[2017-07-13 12:44] LABS: BASO # 0.03 K/mm3 (0.0-2.0); BASO % 0.4 % (0.0-3.0); EOS % 0.4 % (1.5-5.0); GRAN # 6.57 (1.4-6.5); GRAN % 78.2 % (50.0-68.0); HEMOGLOBIN 14.7 g/dL (12.0-16.0); LYMPH # 1.1 (1.2-3.4); LYMPH % 13.6 % (22.0-35.0); MEAN CORPUSCULAR HEMOGLOBIN 30.8 pg (25.0-35.0); MEAN CORPUSCULAR HGB CONC 33.8 g/dl (31.0-37.0); MONO # 0.6 (0.1-0.6); MONO % 7.4 % (1.0-6.0); RBC 4.78 10^6/uL (3.5-6.1); RED CELL DISTRIBUTION WIDTH 16.4 % (11.5-14.5); WHITE BLOOD COUNT 8.4 10^3/ul (4.5-11.0)
[2017-07-13 12:56] LABS: ALB/GLOB RATIO 1.2 (1.1-1.8); ALBUMIN 3.7 g/dL (3.0-4.8); ALT/SGPT 31 U/L (7-56); AST/SGOT 27 U/L (14-36); BLOOD UREA NITROGEN 21 mg/dL (7-21); CALCIUM 9.7 mg/dL (8.4-10.5); GFR AFRICAN-AMERICAN > 60; GFR NON-AFRICAN AMERICAN > 60
--- NOTE | 2017-07-13 14:37 | CP.PCM.PN ---
Subjective - Date & Time of Evaluation Date of Evaluation: 07/13/17 Time of Evaluation: 14:33 - Subjective Subjective: Patient seen and examined at bedside. Patient is khmer speaking. Patient states she does have shortness of breath. Patient does not have any pain. Denies chest pain, nausea, vomiting, diarrhea, fever, chills, headache. Objective - Vital Signs/Intake and Output Vital Signs (last 24 hours): Temp Pulse Resp BP Pulse Ox 98.4 F 99 H 24 151/99 H 100 07/13/17 07:30 07/13/17 07:30 07/13/17 07:30 07/13/17 07:30 07/13/17 07:30 Intake and Output: 07/13/17 07/13/17 06:59 18:59 Intake Total 120 Output Total 175 Balance -55 - Medications Medications: Current Medications Albuterol/Ipratropium (Duoneb 3 Mg/0.5 Mg (3 Ml) Ud) 3 ml IH [id number] [facility] Last Admin: 07/13/17 13:22 Dose: 3 ml Albuterol/Ipratropium (Duoneb 3 Mg/0.5 Mg (3 Ml) Ud) 3 ml IH Q2H PRN PRN Reason: Shortness of Breath Alprazolam (Xanax) 0.25 mg PO Q6H PRN; Protocol PRN Reason: Anxiety Stop: 07/19/17 16:31 Last Admin: 07/13/17 12:26 Dose: 0.25 mg Budesonide (Pulmicort Respules) 0.5 mg IH [id number] [facility] Last Admin: 07/13/17 07:43 Dose: 0.5 mg Ceftriaxone Sodium (Rocephin 1 Gram Ivpb) 1 gm in 100 mls @ 100 mls/hr IVPB DAILY [facility] PRN Reason: Protocol Last Admin: 07/13/17 11:27 Dose: 100 mls/hr Azithromycin (Zithromax 500mg In Ns) 500 mg in 250 mls @ 167 mls/hr IVPB DAILY [facility] Last Admin: 07/13/17 11:28 Dose: 167 mls/hr - Labs Labs: 07/13/17 12:35 07/13/17 12:35 - Constitutional Appears: Non-toxic, No Acute Distress - Head Exam Head Exam: ATRAUMATIC, NORMAL INSPECTION, NORMOCEPHALIC - ENT Exam ENT Exam: Mucous Membranes Moist - Respiratory Exam Respiratory Exam: Decreased Breath Sounds, Wheezes, NORMAL BREATHING PATTERN. absent: Rales, Rhonchi - Cardiovascular Exam Cardiovascular Exam: RRR, +S1, +S2 - GI/Abdominal Exam GI & Abdominal Exam: Soft, Normal Bowel Sounds. absent: Tenderness - Extremities Exam Extremities Exam: Normal Inspection. absent: Calf Tenderness, Pedal Edema - Neurological Exam Neurological Exam: Alert, Awake, Oriented x3 - Psychiatric Exam Psychiatric exam: Normal Affect, Normal Mood - Skin Skin Exam: Intact, Normal Color, Warm Assessment and Plan - Assessment and Plan (Free Text) Plan: 82 y/o F with PMH of colon cancer s/p right hemicolectomy, chronic right pleural effusion, and Cirrhosis with splenomegaly presents with 3 week history of dyspnea. CT chest in the ED demonstrated new 4.4 x 4.8 cm right perihilar mass, with multiple left nodules, and a sclerotic lesion on T11. After discussion with patient's son, family would not like to pursue further workup of new lung cancer. They would like improve patient's breathing status and have her discharged home. Patient also evaluated by Palliative care nurse. No biopsy at this time. Continue current medical regimen. Plan discussed with Dr. Paige. Nafisa, PGY-2
[2017-07-14 07:02] LABS: BASO # 0.02 K/mm3 (0.0-2.0); BASO % 0.5 % (0.0-3.0); EOS # 0.1 (0.0-0.7); EOS % 1.4 % (1.5-5.0); GRAN # 2.35 (1.4-6.5); GRAN % 64.2 % (50.0-68.0); HEMOGLOBIN 12.9 g/dL (12.0-16.0); LYMPH # 0.9 (1.2-3.4); LYMPH % 24.3 % (22.0-35.0); MEAN CELL VOLUME 92.2 fl (80.0-105.0); MEAN CORPUSCULAR HEMOGLOBIN 29.6 pg (25.0-35.0); MEAN CORPUSCULAR HGB CONC 32.1 g/dl (31.0-37.0); MEAN PLATELET VOLUME 10.4 fl (7.0-11.0); MONO # 0.4 (0.1-0.6); MONO % 9.6 % (1.0-6.0); RBC 4.36 10^6/uL (3.5-6.1); RED CELL DISTRIBUTION WIDTH 16.2 % (11.5-14.5); WHITE BLOOD COUNT 3.7 10^3/ul (4.5-11.0)
[2017-07-14] MEDS: Budesonide 0.5 mg/2 ml Inhal Susp UD IH SCH ×2 (07:11→19:55)
[2017-07-14] MEDS: Albuterol-Ipratrop 3 mg / 0.5 (3 ml) UD IH SCH ×3 (07:11→19:55)
[2017-07-14 07:30] LABS: ALB/GLOB RATIO 1.1 (1.1-1.8); ALBUMIN 3.2 g/dL (3.0-4.8); ALT/SGPT 23 U/L (7-56); AST/SGOT 25 U/L (14-36); BLOOD UREA NITROGEN 22 mg/dL (7-21); CALCIUM 9.5 mg/dL (8.4-10.5); GFR AFRICAN-AMERICAN > 60; GFR NON-AFRICAN AMERICAN > 60
--- NOTE | 2017-07-14 08:00 | PN ---
DATE: 07/14/2017 PULMONARY NOTE SUBJECTIVE: The patient appears very comfortable this morning. She is not short of breath at rest. PHYSICAL EXAMINATION: VITAL SIGNS: Last temperature recorded is 97.6, pulse is 80, respirations 16/18, blood pressure 132/86. Oxygen saturation on nasal cannula is 96%. HEENT: Normocephalic, atraumatic. NECK: No JVD. CARDIOVASCULAR: Systolic ejection murmur at the lower left sternal border. No S3 gallop. LUNGS: Decreased breath sounds at the bases. Very minimal/less rhonchi. No wheezing. EXTREMITIES: No clubbing, cyanosis or edema. Calves are nontender to palpation. GI: Abdomen is soft, nontender and nondistended. Bowel sounds are positive. SKIN: No acute rash. NEUROLOGIC: Exam limited at the present time. IMPRESSION: 1. Probable advanced lung cancer. 2. Mild bronchospasm. 3. Rule out underlying pneumonia. 4. History of advanced colon cancer, status post hemicolectomy. PLAN: The patient appears very comfortable this morning. She is not short of breath at rest. She does state to feeling better overall. However, she does remain very weak appearing. I discussed the case with the night nurse at length. The night nurse stated that the patient had a very good night. On physical exam, her bronchospasm continues to resolve. In addition, there is no significant alveolar-arterial gradient. I will continue with the current nebulizer treatments and inhaled steroids for now. I will also continue with the antibiotic coverage for now. There are no temperatures noted. Repeat a.m. labs are pending. I did have a lengthy conversation with the son yesterday. The son reconfirms that he/the family are not interested in pursuing a diagnosis of lung cancer. The son did state that the patient (his mother) would not accept chemotherapy or any other treatment at this point in time. Again, I feel that this is a very reasonable approach - given the patient's age and CT scan findings. Input by Marielena Layton (palliative care) is also noted. Clinical status of the patient is certainly improved - compared to the initial presentation. However, again, unfortunately, the overall status/prognosis for this patient remains very poor. All are aware. I will discuss the above with Dr. Freeman. Harry Camops MD [facility] # [id number] DEBBIE
[2017-07-14] MEDS: cefTRIAXone 1 gm 1 GM/100 ML BAG IVPB SCH (10:30)
[2017-07-14] MEDS: Azithromycin 500MG/NS 250ml 500 MG/250 ML BAG IVPB SCH (10:30)
[2017-07-14] MEDS ORDERED: Potassium Chloride 20 mEq ER Tab PO ONE ×2 (15:28→20:00)
[2017-07-14] MEDS ORDERED: Magnesium Citrate Oral SOL (300 ml) PO ONE ×2 (18:55→19:04)
--- NOTE | 2017-07-14 21:39 | PN ---
DATE: 07/14/2017 This is [facility] visit on the medical floor. For Dr. Paige, SUBJECTIVE: The patient is an 82-year-old female seen, speaks Telugu with her family at the bedside as translators, sitting up in chair, having her lunch, in no acute distress at this time. The patient was admitted by the Emergency Room 3 days prior for persistent cough with decreased appetite with the patient known to suffer from pulmonary mass. She states history of right colon cancer with hemicolectomy, COPD history with the family refusing any further test including biopsy for her pulmonary condition. Her PET CT scan done in 11/2016, was interval mild increase in size, midsternal lymph nodes demonstrated mild increased FDG uptake. Differential diagnoses include reactive lymphadenopathy secondary to infection, inflammatory process, sarcoidosis, possible metastasis is less likely stable splenomegaly; however, a CT scan of the chest done 3 days prior showed a 4 x 8 cm perihilar mass concerning for malignancy with the mass with obstruction of right main pulmonary bronchus; however, PET to be rescheduled as an outpatient with suspicious here also for probable pneumonia with multiple nodules in the left lung metastatic nodules were considered, bulky mediastinal lymphadenopathy with splenomegaly. These findings were reviewed with the family again the patient's family were electing to not pursue further diagnostic workup at this time with biopsy and for couple of measures to be implement and we will follow their request. PHYSICAL EXAMINATION: VITAL SIGNS: Temperature 99.6, pulse 51, respirations 20, blood pressure 119/72, and pulse oximetry of 92%. HEENT: Unremarkable. Tongue is moist, midline. NECK: Supple. HEART: Regular rate. LUNGS: Decreased breath sounds at the bases. Rare rhonchi. ABDOMEN: Soft and nontender. EXTREMITIES: No edema. SKIN: Warm and dry. NEUROLOGIC: Awake and alert. Speaks Telugu with hotel office manager. LABORATORY DATA: The patient's labs were done. White blood cell count of 3.7, hemoglobin of 12.9, hematocrit of 40.2 and platelet count of 85,000 with chem metabolic panel showing a potassium 3.2 to be corrected, BUN of 22, creatinine 0.6, otherwise normal chem panel. ASSESSMENT: For this patient is that of probable lung cancer with metastasis, chronic obstructive pulmonary disease, bronchospasm, possible underlying pneumonia, history of colon cancer status post hemicolectomy. PLAN: For this patient after conversation with Dr. Piage is to continue present medical regimen, we will consider PET CT scan as an outpatient with the biopsy. Recommendation of the family reconsider. In the interim, comfort measures are to continue replenishment of her potassium has been done. Prognosis for this patient is guarded. We will also check of CEA. Augustin De MD
--- NOTE | 2017-07-14 23:19 | PN ---
DATE: SUBJECTIVE: The patient is 82 years old, seen and examined, lying in bed, seems to be comfortable. PHYSICAL EXAMINATION VITAL SIGNS: She is afebrile, pulse , respirations 20, blood pressure 140/77. LUNGS: Bilateral fair airflow. No rhonchi or crackle. HEART: S1 and S2 audible. ABDOMEN: Soft, nontender. No rebound. No guarding. NEUROLOGIC: She is awake and alert, somewhat confused. EXTREMITIES: Bilateral legs, no edema. LABORATORY DATA: WBC 3.7, hemoglobin 12.9, hematocrit 40, platelets of 85. Chemistry; sodium 144, potassium 3.2, chloride 112, CO2 of 25, BUN 22, creatinine 0.6, blood sugar of 93. Urine culture shows E. coli. CT scan of the chest shows right perihilar 4.8 x 4.4 cm mass with mediastinal lymphadenopathy with multiple nodules. ASSESSMENT AND PLAN: 1. Constipation. 2. Lung masses, lymphadenopathy. 3. Asthmatic bronchitis. 4. Mild dementia. 5. Cirrhosis of liver. 6. History of cancer of the colon. PLAN: Currently, the patient is on nebulizer treatment. Her potassium is being supplemented. I will give one dose of magnesium citrate. Continue on Zithromax and Rocephin. Out of bed to chair. Start her on SCDs for DVT prophylaxis. We will follow the patient in a.m. Uyen Lam MD
[2017-07-15] MEDS: Albuterol-Ipratrop 3 mg / 0.5 (3 ml) UD IH SCH ×4 (01:07→19:25)
[2017-07-15] MEDS: Budesonide 0.5 mg/2 ml Inhal Susp UD IH SCH ×2 (07:37→19:25)
[2017-07-15 07:57] LABS: BASO # 0.01 K/mm3 (0.0-2.0); BASO % 0.2 % (0.0-3.0); EOS # 0.1 (0.0-0.7); EOS % 1.2 % (1.5-5.0); GRAN # 3.89 (1.4-6.5); GRAN % 75.3 % (50.0-68.0); HEMOGLOBIN 12.9 g/dL (12.0-16.0); LYMPH # 0.7 (1.2-3.4); LYMPH % 13.2 % (22.0-35.0); MEAN CELL VOLUME 92.4 fl (80.0-105.0); MEAN CORPUSCULAR HEMOGLOBIN 29.7 pg (25.0-35.0); MEAN CORPUSCULAR HGB CONC 32.2 g/dl (31.0-37.0); MEAN PLATELET VOLUME 10.6 fl (7.0-11.0); MONO # 0.5 (0.1-0.6); MONO % 10.1 % (1.0-6.0); RBC 4.34 10^6/uL (3.5-6.1); RED CELL DISTRIBUTION WIDTH 16.3 % (11.5-14.5); WHITE BLOOD COUNT 5.2 10^3/ul (4.5-11.0)
--- NOTE | 2017-07-15 08:20 | PN ---
DATE: 07/15/2017 PULMONARY PROGRESS NOTE SUBJECTIVE: The patient appears comfortable this morning. She is not short of breath at rest. She remains very weak. PHYSICAL EXAMINATION: VITAL SIGNS: Last temperature recorded is 98.0, pulse this morning is 88, respirations are 18/20, and blood pressure is 140/77. Oxygen saturation on nasal cannula is 94%. HEENT: Normocephalic and atraumatic. NECK: No JVD. CARDIOVASCULAR: Systolic ejection murmur at the lower left sternal border. No S3 gallop. LUNGS: Decreased breath sounds at the bases. Minimal/less rhonchi. No wheezing. EXTREMITIES: No clubbing, cyanosis or edema. Calves are nontender to palpation. GASTROINTESTINAL: Abdomen is soft, nontender and nondistended. Bowel sounds are positive. SKIN: No acute rash. NEUROLOGIC: Exam is limited at the present time. IMPRESSION 1. Probable advanced lung cancer. 2. Mild bronchospasm. 3. Rule out underlying pneumonia. 4. History of advanced colon cancer, status post right hemicolectomy. PLAN: The patient appears comfortable this morning. She is not short of breath at rest. She remains very weak appearing. I discussed the case with the night nurse at length. The night nurse stated that the patient had a pretty good night. On physical exam, only mild bronchospasm remains. I will continue the current nebulizer treatments and inhaled steroids for now. I will also continue with the antibiotic therapy for now. There are no temperatures noted. There is no leukocytosis. Clinical status of the patient is certainly improved - compared to the initial presentation. However, again, unfortunately, the future status/prognosis for this elderly patient remains very poor. All are aware. Again, I did discuss the case with the son at length. I will also discuss the case again with the attending physician. Harry Campos MD MTDD
[2017-07-15 08:50] LABS: ALB/GLOB RATIO 1.1 (1.1-1.8); ALT/SGPT 29 U/L (7-56); AST/SGOT 29 U/L (14-36); BLOOD UREA NITROGEN 14 mg/dL (7-21); CALCIUM 9.1 mg/dL (8.4-10.5); GFR AFRICAN-AMERICAN > 60; GFR NON-AFRICAN AMERICAN > 60
[2017-07-15] MEDS: Azithromycin 500MG/NS 250ml 500 MG/250 ML BAG IVPB SCH (10:15)
[2017-07-15] MEDS: cefTRIAXone 1 gm 1 GM/100 ML BAG IVPB SCH (10:15)
--- NOTE | 2017-07-15 14:29 | RAD ---
HISTORY: Shortness of breath COMPARISON: 07/11/2017. FINDINGS: LUNGS: There is complete opacification of the right hemithorax and shift of trachea and mediastinum to the right. The left lung is relatively clear. PLEURA: No significant pleural effusion identified, no pneumothorax apparent. CARDIOVASCULAR: Normal. OSSEOUS STRUCTURES: No significant abnormalities. VISUALIZED UPPER ABDOMEN: Normal. OTHER FINDINGS: None. IMPRESSION: Complete opacification of the right hemithorax with shift of trachea and mediastinum to the right concerning for right lung collapse.
[2017-07-15] MEDS: Acetylcysteine 20% Inhal Soln (4ml) IH SCH ×2 (16:14→19:25)
[2017-07-15] MEDS: Albuterol-Ipratrop 3 mg / 0.5 (3 ml) UD IH PRN ×2 (16:15→23:16)
--- NOTE | 2017-07-15 20:45 | PN ---
DATE: 07/15/[address] Paige. SUBJECTIVE: The patient is an 82-year-old female, seen sitting up in bed with family at the bedside, noted to be significantly more tachypneic this visit since yesterday's visit with the patient reporting that she does not feel well after translation from the Macedonian as per her son. The patient is known to suffer from hypoxemic respiratory failure with COPD, bronchospasm, early pneumonia with probable lung cancer for which the family has elected not to do biopsy for. Also at their request and the family's wishes and the patient's wishes, we will make the patient DNR/DNI, which will be implemented into the medical record. She also has a history of colon cancer status post hemicolectomy. With this, we will ask for a stat chest x-ray to be done with appropriate followup as per pulmonary and client technologies specialist as indicated for her present evaluation. OBJECTIVE: VITAL SIGNS: Temperature 98.8, pulse 98, respirations 24, blood pressure is 121/73, pulse oximetry 93%. GENERAL: She appears in minimal respiratory distress with tachypnea. HEENT: Otherwise, unremarkable. NECK: Supple. HEART: Tacky rate, regular rhythm. LUNGS: Decreased breath sounds on the right. ABDOMEN: Soft and nontender. EXTREMITIES: No edema. SKIN: Warm and dry. NEUROLOGIC: Awake and alert, but weakness to auto inspector. Oxygen is on. LABORATORY DATA: The patient's labs were done; white blood cell count of 5.2, hemoglobin of 12.9, hematocrit of 40.1, platelet count of 89,000 up from 85,000 thought to be related to her acute illness and now with slow recovery. Her chem metabolic panel was within normal range with a CEA value of 5.6, procalcitonin is 0.07 three days earlier. The patient did have a chest x-ray done earlier after it was ordered for her tachypneic presentation. Chest x-ray read complete opacification of the right hemithorax with shift to trachea and mediastinum of the right, concerning for right lung collapse. ASSESSMENT: The assessment for this patient is that of tachypnea with questionable right lung collapse in a patient with probable lung cancer, unfortunately not biopsy proven at this point with lung masses and adenopathy, dementia, chronic obstructive pulmonary disease, bronchospasm, pneumonia, history of colon cancer status post hemicolectomy. PLAN: The plan for this patient after conversation with Dr. Paige and with Dr. Lam who is covering for Dr. Freeman, her attending will be to have an assessment by the client technologies specialist, I believe today it is Dr. Ballard with consideration for further treatment including transfer to intensive care unit with consideration of a bronchial plug versus with bronchoscopy with evacuation versus chest tube. With this, the patient is also now a DNR/DNI patient at her and family member's request with this to be taken to consideration with comfort measures to be implemented and to be paramount in her care at this point. The prognosis for this patient is guarded. We will monitor clinically and with labs with her anticipated discharge home on hold. We have also asked for Dr. Campos, continuous improvement lead to follow as indicated. Augustin De MD
--- NOTE | 2017-07-15 22:06 | PN ---
DATE: SUBJECTIVE: The patient is 82 years old, seen and examined; seems to be short of breath, pale, agitated. Dr. De had a talk with the patients family and was made DNR. Had x-ray of the chest done that shows right lung. PHYSICAL EXAMINATION: VITAL SIGNS: The patient is afebrile, pulse 98, respirations 24, and blood pressure 121/73, pulse ox 93%. LUNGS: Decreased breath sounds in right lower lung and upper lung area. HEART: S1 and S2 audible. ABDOMEN: Soft, nontender. No rebound. No guarding. NEUROLOGIC: She is awake, alert, oriented, able to communicate but there is a language barrier. LABORATORY DATA: WBC 5.7, hemoglobin 12.9, hematocrit 40, platelets of 89. Chemistry: Sodium 142, potassium 4.3, chloride 113, CO2 of 21, BUN 14, creatinine 0.6, blood sugar of 101. Urine positive for E. coli. X-ray chest done this afternoon around 1 o'clock shows complete opacification of the right hemithorax with shift of trachea and mediastinum to the right concerning for a right lung collapse. ASSESSMENT AND PLAN: 1. Lung mass. 2. Right lung collapse secondary to mucus plugging. 3. Deconditioning and difficulty walking. 4. Malnutrition. 5. Constipation. 6. Asthmatic bronchitis. 7. Cirrhosis of liver. 8. History of carcinoma of colon. PLAN: Patient was given magnesium citrate with no effect. We will start her on Mucomyst. Patient does not want any aggressive interventions. They do not want bronchoscopy or suction. We will try to give her Dulcolax suppository. Continue nebulizer treatment. She will be followed. Uyen Lam MD
[2017-07-16] MEDS: Albuterol-Ipratrop 3 mg / 0.5 (3 ml) UD IH SCH ×2 (02:21→07:35)
[2017-07-16] MEDS: Acetylcysteine 20% Inhal Soln (4ml) IH SCH ×4 (02:21→20:17)
[2017-07-16] MEDS: Budesonide 0.5 mg/2 ml Inhal Susp UD IH SCH ×2 (07:35→20:17)
--- NOTE | 2017-07-16 07:54 | PN ---
DATE: 07/16/2017 PULMONARY NOTE SUBJECTIVE: The patient appears moderately short of breath at the present time. She appears extremely weak. OBJECTIVE: VITALS: Last temperature recorded is 97.4, pulse is approximately 100, respiratory rate 26/28, blood pressure is 120/84. Oxygen saturation on nasal cannula is 93%. HEENT: Normocephalic, atraumatic. No JVD. CARDIOVASCULAR: Systolic ejection murmur at the lower left sternal border. No S3 gallop. LUNGS: Bronchial breath sounds--right lung. Minimal bilateral rhonchi. No wheezing. EXTREMITIES: No clubbing, cyanosis or edema. Calves are nontender to palpation. GI: Abdomen is soft, nontender, and nondistended. Bowel sounds are positive. SKIN: No acute rash. NEUROLOGIC: Limited at the present time. CURRENT LABORATORY DATA: Chest x-ray was done this morning and reviewed. There is significant opacification of the right lung noted. IMPRESSION: 1. Probable advanced lung cancer. 2. Mucous plugging - right lung. 3. Mild bronchospasm. 4. Rule out underlying pneumonia. 5. History of advanced colon cancer, status post right hemicolectomy. PLAN: The patient is currently moderately short of breath. She appears very, very weak. I did discuss the case with the night nurse at length. I also discussed the case with Dr. De at length yesterday. The patient did become more short of breath during the day yesterday. Chest x-ray revealed significant opacification of the right lung. This opacification is probably a combination of the tumor mass obstructing the right mainstem bronchus, in addition to acute mucous plugging. I also discussed the case with the respiratory therapist at length yesterday. Nebulizer treatments including Mucomyst, chest percussion therapy, and suctioning were ordered. Again, I did discuss the case with the night nurse at length. The family does not want any aggressive procedures done. They also refused ICU evaluation. We will continue with the aggressive pulmonary toilet for now. I will also discuss the case with the respiratory therapist again this morning. Overall status/prognosis for this patient remains very poor. All are aware. I will discuss the above with the attending physician. Harry Campos MD [facility] # [id number] MTDYonny
--- NOTE | 2017-07-16 08:27 | PN ---
DATE: 07/16/2017 SUBJECTIVE: The patient has no complaints of any chest pain. She has no headaches or dizziness. PHYSICAL EXAMINATION: VITAL SIGNS: Temperature is 97.4, pulse of 101, blood pressure is 120/84, and respirations of 20. GENERAL: The patient is lying in bed, flat, comfortable. HEENT: No oral lesion. Anicteric sclerae. Moist mucosa. NECK: No JVD, adenopathy, or thyromegaly. CARDIOVASCULAR: S1 and S2, regular. No murmurs, rubs, or gallops. LUNGS: Decreased air entry in the right lung and good air entry in left lung. Few rhonchi. No rales. ABDOMEN: Bowel sounds are positive, soft, nontender and nondistended. EXTREMITIES: No cyanosis, clubbing or edema. LABORATORY DATA: White count of 5.2, hemoglobin of 12.9, and creatinine is 0.6. DIAGNOSTIC DATA: Chest x-ray done, shows complete opacification of the right hemithorax. ASSESSMENT: 1. Right lung opacification with probable collapse. 2. Right lung mass, 4.8 x 4.4 cm. 3. Mediastinal adenopathy. 4. Pneumonia/bronchitis. 5. Splenomegaly. 6. Cirrhosis. 7. T11 vertebral fracture. 8. History of colon cancer. 9. Right pleural effusion. PLAN: The patient is being followed by Pulmonary. The patient's family wants a conservative management. The patient is on Mucomyst. The patient is going to continue with Rocephin for antibiotics. She is on Xanax as needed. She does get anxious at times. She is preferring to go home. She has been followed by a palliative care. Geovani Freeman MD
--- NOTE | 2017-07-16 08:39 | RAD ---
HISTORY: collapsed right lung COMPARISON: 07/15/2017. FINDINGS: LUNGS: No significant interval change in complete opacification of the right with shift of mediastinal and trachea to the right. The left lung is clear. No active pulmonary disease. PLEURA: No significant pleural effusion identified, no pneumothorax apparent. CARDIOVASCULAR: Normal. OSSEOUS STRUCTURES: No significant abnormalities. VISUALIZED UPPER ABDOMEN: Normal. OTHER FINDINGS: Surgical clips in the right upper quadrant are related to prior cholecystectomy.. IMPRESSION: No change complete opacification of the right hemithorax with shift of trachea and mediastinal to the right raising the possibility of right lung collapse.
[2017-07-16] MEDS: Azithromycin 500MG/NS 250ml 500 MG/250 ML BAG IVPB SCH (09:18)
[2017-07-16] MEDS: cefTRIAXone 1 gm 1 GM/100 ML BAG IVPB SCH (09:19)
[2017-07-16] MEDS ORDERED: Levalbuterol 1.25 MG/3 ML Inhal Soln UD IH SCH ×2 (10:00)
[2017-07-16] MEDS ORDERED: Levalbuterol 1.25 MG/3 ML Inhal Soln UD IH PRN (11:48)
--- NOTE | 2017-07-16 12:38 | CP.PCM.PN ---
Subjective - Date & Time of Evaluation Date of Evaluation: 07/16/17 Time of Evaluation: 11:00 - Subjective Subjective: Confused. Dyspnea. Non productive cough Chest PT/Suctioning. Objective - Vital Signs/Intake and Output Vital Signs (last 24 hours): Temp Pulse Resp BP Pulse Ox 98.0 F 93 H 19 134/69 93 L 07/16/17 07:30 07/16/17 07:30 07/16/17 07:30 07/16/17 07:30 07/16/17 07:30 Intake and Output: 07/16/17 07/16/17 06:59 18:59 Intake Total 180 Output Total 0 Balance 180 - Medications Medications: Current Medications Acetylcysteine (Acetylcysteine 20%) 4 ml IH [id number] [facility] Last Admin: 07/16/17 07:35 Dose: 4 ml Alprazolam (Xanax) 0.25 mg PO Q6H PRN; Protocol PRN Reason: Anxiety Stop: 07/19/17 16:31 Last Admin: 07/15/17 21:17 Dose: 0.25 mg Budesonide (Pulmicort Respules) 0.5 mg IH [id number] [facility] Last Admin: 07/16/17 07:35 Dose: 0.5 mg Levalbuterol HCl (Xopenex) 1.25 mg IH [id number] [facility] Levalbuterol HCl (Xopenex) 1.25 mg IH Q2 PRN PRN Reason: Shortness of Breath - Labs Labs: 07/15/17 07:00 07/15/17 07:00 - Constitutional Appears: Cachectic, Chronically Ill - Head Exam Head Exam: NORMAL INSPECTION - Eye Exam Eye Exam: Normal appearance, PERRL - ENT Exam ENT Exam: Mucous Membranes Moist, Normal Oropharynx - Neck Exam Neck Exam: Normal Inspection - Respiratory Exam Respiratory Exam: Decreased Breath Sounds, Rhonchi - Cardiovascular Exam Cardiovascular Exam: Tachycardia, +S1, +S2 - GI/Abdominal Exam GI & Abdominal Exam: Soft, Diminished Bowel Sounds - Extremities Exam Extremities Exam: Pedal Edema - Psychiatric Exam Psychiatric exam: Anxious - Skin Skin Exam: Dry Assessment and Plan - Assessment and Plan (Free Text) Assessment: 82 year old female with history of CAD,CHF,cirrhosis, splenomegaly, colon cancer admitted with respiratory insufficiency, right pleural effusion, dyspnea, weakness, anorexia. Found to have R lung mass, mediastinal adenopathy, liver lesions and T11 lesion. The family has decided on DNR/DNI status for the patient. Family has had discussion regarding goals of care. Family is aware that patient critically ill and that prognosis is poor. Family does not want invasive/aggressive procedures. Family asking about hospice services. Hospice care explained in detail, questions answered. Encouraged to consider home hospice care. Family concerned, unsure they can handle mother's respiratory distress/suctioning needs. They also requested information on in patient hospice care which was provided to them. Time spent with family in goals of care and end of life counseling, 45 minutes Plan: Goals of care Hospice evaluation
[2017-07-16] MEDS: Levalbuterol 1.25 MG/3 ML Inhal Soln UD IH SCH ×2 (14:27→20:17)
[2017-07-17] MEDS: Levalbuterol 1.25 MG/3 ML Inhal Soln UD IH SCH ×2 (02:20→07:29)
[2017-07-17] MEDS: Acetylcysteine 20% Inhal Soln (4ml) IH SCH ×2 (02:20→07:29)
[2017-07-17] MEDS: Budesonide 0.5 mg/2 ml Inhal Susp UD IH SCH (07:29)
--- NOTE | 2017-07-17 07:55 | PN ---
DATE: 07/17/2017 PULMONARY NOTE SUBJECTIVE: The patient is currently mildly short of breath, but in no acute distress. She remains very, very weak appearing. PHYSICAL EXAMINATION: VITAL SIGNS: (Last noted in the computer): Temperature is 98.3, pulse is approximately 100, respiratory rate 22/24, blood pressure 147/98. Oxygen saturation on nasal cannula is 92%. HEENT: Normocephalic, atraumatic. NECK: No JVD. CARDIOVASCULAR: Systolic ejection murmur at the lower left sternal border. No S3 gallop. LUNGS: Slight improvement in the breath sounds - right lung. Minimal bilateral rhonchi. No wheezing. EXTREMITIES: No clubbing, cyanosis or edema. Calves are nontender to palpation. GI: Abdomen is soft, nontender and nondistended. Bowel sounds are positive. SKIN: No acute rash. NEUROLOGIC: Exam limited at the present time. PERTINENT LABORATORY DATA: Chest x-ray was done this morning and reviewed. There remains significant opacification of the right lung noted. IMPRESSION: 1. Probable advanced lung cancer. 2. Mucous plugging - right lung. 3. Mild bronchospasm. 4. Rule out underlying pneumonia. 5. History of advanced colon cancer, status post right hemicolectomy. PLAN: The patient is currently mildly short of breath, but in no acute distress. She remains very, very weak appearing. The son is at the bedside, and I did discuss the case with him at length. I also discussed the case with the night nurse at length. The patient did have oxygen desaturation over the night. The patient/family are refusing mask oxygen or high-flow oxygen delivery. We will continue with the nasal cannula for now. Again, the saturation is 92%. On physical exam, there is slight increased aeration noted to the right lung. I will continue with the current nebulizer treatments, pulmonary toilet, and inhaled Pulmicort. I will also re-discuss the case with the respiratory therapist this morning. Again, at the bedside, the son does reconfirm that they want no aggressive procedures done. I have also reviewed the note by Marielena Layton (Palliative Care). The patient is for probable hospice transfer in the near future. Unfortunately, the overall status/prognosis for this patient remains very poor. All are aware. I will discuss the above with the attending physician. Harry Campos MD [facility] # [id number] DEBBIE
[2017-07-17 08:17] VITALS: BP 138/90; PULSE 90; RESP 18; TEMP 98; O2SAT 92
--- NOTE | 2017-07-17 08:27 | RAD ---
HISTORY: [facility] COMPARISON: 07/16/2017 FINDINGS: LUNGS: Persistent complete opacification of right olegario thorax with volume loss, shift of heart and mediastinum towards the right side. PLEURA: Minimal blunting left costophrenic angle. No pneumothorax. CARDIOVASCULAR: Limited evaluation due to right-sided volume loss and opacification OSSEOUS STRUCTURES: No significant abnormalities. VISUALIZED UPPER ABDOMEN: Normal. OTHER FINDINGS: None. IMPRESSION: No change from 07/16/2017.
--- NOTE | 2017-07-17 09:23 | CP.PCM.PN ---
Subjective - Date & Time of Evaluation Date of Evaluation: 07/17/17 Time of Evaluation: 09:00 - Subjective Subjective: Lethargic,breathing labored. Objective - Vital Signs/Intake and Output Vital Signs (last 24 hours): Temp Pulse Resp BP Pulse Ox 98.0 F 90 18 138/90 92 L 07/17/17 07:30 07/17/17 07:30 07/17/17 07:30 07/17/17 07:30 07/17/17 07:30 Intake and Output: 07/17/17 07/17/17 06:59 18:59 Intake Total 60 Balance 60 - Medications Medications: Current Medications Acetylcysteine (Acetylcysteine 20%) 4 ml IH [id number] [facility] Last Admin: 07/17/17 07:29 Dose: 4 ml Alprazolam (Xanax) 0.25 mg PO Q6H PRN; Protocol PRN Reason: Anxiety Stop: 07/19/17 16:31 Last Admin: 07/16/17 23:02 Dose: 0.25 mg Budesonide (Pulmicort Respules) 0.5 mg IH [id number] [facility] Last Admin: 07/17/17 07:29 Dose: 0.5 mg Levalbuterol HCl (Xopenex) 1.25 mg IH [id number] [facility] Last Admin: 07/17/17 07:29 Dose: 1.25 mg Levalbuterol HCl (Xopenex) 1.25 mg IH Q2 PRN PRN Reason: Shortness of Breath - Labs Labs: 07/15/17 07:00 07/15/17 07:00 - Constitutional Appears: Cachectic, Chronically Ill - Head Exam Head Exam: NORMAL INSPECTION - Eye Exam Eye Exam: Normal appearance, PERRL - ENT Exam ENT Exam: Mucous Membranes Moist, Normal Oropharynx - Neck Exam Neck Exam: Normal Inspection - Respiratory Exam Respiratory Exam: Decreased Breath Sounds, Rhonchi, Wheezes - Cardiovascular Exam Cardiovascular Exam: Tachycardia, +S1, +S2 - GI/Abdominal Exam GI & Abdominal Exam: Soft, Diminished Bowel Sounds - Extremities Exam Extremities Exam: Normal Capillary Refill, Normal Inspection - Neurological Exam Neurological Exam: Altered - Skin Skin Exam: Dry, Pallor Assessment and Plan - Assessment and Plan (Free Text) Assessment: 82 year old female with history of COPD, colon cancer, HTN who is admitted with weakness, dyspnea,right olegario thorax,cachexia. New findings of R lung mass, mediastinal adenopathy, liver lesions on CT scan Family meeting held, family is requesting hospice care. The patient is being evaluated for [facility] services. She requires management of dyspnea, anxiety and frequent pulmonary toileting [facility] clinical rehabilitation liaison evaluated patient and has accepted her to [facility] services. Consents signed by family. Patient to be under [facility] services for symptom management and end of life care. Time spent with family in goals of care and end of life counseling, 45 minutes Plan: Discharge and readmit under [facility] hospice services End of life counseling
--- NOTE | 2017-07-17 13:26 | CP.PCM.PN ---
Subjective - Date & Time of Evaluation Date of Evaluation: 07/17/17 Time of Evaluation: 13:23 - Subjective Subjective: Patient seen and examined at bedside. Patient accompanied by her son at bedside. Son states he has been there since last night. She was mildly anxious and had shortness of breath, which has now resolved. Denies chest pain, current shortness of breath, nausea, vomiting, diarrhea, fever, chills. Objective - Vital Signs/Intake and Output Vital Signs (last 24 hours): Temp Pulse Resp BP Pulse Ox 98.0 F 90 18 138/90 92 L 07/17/17 07:30 07/17/17 07:30 07/17/17 07:30 07/17/17 07:30 07/17/17 07:30 Intake and Output: 07/17/17 07/17/17 06:59 18:59 Intake Total 60 Balance 60 - Labs Labs: 07/15/17 07:00 07/15/17 07:00 - Constitutional Appears: Non-toxic, No Acute Distress - Head Exam Head Exam: ATRAUMATIC, NORMAL INSPECTION, NORMOCEPHALIC - ENT Exam ENT Exam: Mucous Membranes Moist - Respiratory Exam Respiratory Exam: Decreased Breath Sounds, NORMAL BREATHING PATTERN. absent: Rales, Rhonchi, Wheezes - Cardiovascular Exam Cardiovascular Exam: RRR, +S1, +S2 - GI/Abdominal Exam GI & Abdominal Exam: Soft, Normal Bowel Sounds. absent: Tenderness - Extremities Exam Extremities Exam: Normal Inspection. absent: Calf Tenderness, Pedal Edema - Neurological Exam Neurological Exam: Alert, Awake - Psychiatric Exam Psychiatric exam: Normal Affect, Normal Mood - Skin Skin Exam: Intact, Normal Color, Warm Assessment and Plan - Assessment and Plan (Free Text) Plan: 82 y/o F with PMH of colon cancer s/p right hemicolectomy, chronic right pleural effusion, and Cirrhosis with splenomegaly presents with 3 week history of dyspnea. CT chest in the ED demonstrated new 4.4 x 4.8 cm right perihilar mass, with multiple left nodules, and a sclerotic lesion on T11. After discussion with patient's son, family would not like to pursue further workup of new lung cancer. Family has decided to pursue hospice care. Patient will be admitted to hospice later today. Plan discussed with Dr. Paige. Nafisa, PGY-2
--- NOTE | 2017-07-18 05:36 | DS ---
HISTORY OF PRESENT ILLNESS: This is an 82-year-old female, who had come into the hospital and was found to have a large lung mass, most likely lung cancer. She had total opacification of the right side of the lung. She is more short of breath. There was extensive discussion with the patient's family regarding end-of-life care. Hospice is offered and accepted by the patient's family. The patient is more tachypneic this morning. I just spoke to the patient's son at the bedside to give him an update on the patient's diagnosis. I spoke with Marielena Layton from the Palliative Care Services who has also been involved in this patient's care. The patient is more tachypneic this morning. She does not have any further complaints. PHYSICAL EXAMINATION: VITAL SIGNS: Temperature 98, pulse of 90, blood pressure 130/90, respirations 24, and O2 saturation 92%. GENERAL: The patient is lying in bed, flat, comfortable. HEENT: No oral lesion. Anicteric sclerae. Moist mucosa. NECK: No JVD, adenopathy, or thyromegaly. CARDIOVASCULAR: S1 and S2, regular. No murmurs, rubs, or gallops. LUNGS: Decreased air entry in the right lung. There is rhonchi that can be heard. Good air entry in the left lung. ABDOMEN: Bowel sounds are positive, soft, nontender and nondistended. EXTREMITIES: no cyanosis, clubbing or edema. LABORATORY DATA: Labs have been reviewed. White count of 5.2, hemoglobin 12.9, creatinine is 0.6 from the last labs. ASSESSMENT: 1. Right lung opacification with probable collapse. 2. Right lung mass 4.8 x 4.4 cm. 3. Mediastinal adenopathy. 4. Pneumonia/bronchitis. 5. Splenomegaly. 6. Cirrhosis. 7. T11 vertebral fracture. 8. Right pleural effusion. 9. History of colon cancer. PLAN: The patient is known to be admitted under hospice services. She will need to have a morphine drip started. The overall prognosis is poor. The patient will most likely succumb to her current disease. She is on Mucomyst, this will be continued. She is on Xanax as needed. We will continue to follow the patient in the hospital. Condition poor. Geovani Freeman MD [facility] # [id number]
== END 2017-07-17 12:22 | disposition hospice, inpatient (51) | DRG 180 ==
LOC: ED 17:28 → ERH 23:03 → 5RNO 07-12 02:31
PROVIDERS: ADMIT Internal Medicine Nephrology; ATTEND Internal Medicine Nephrology
PROC: 3E0F7GC Introduction of Other Therapeutic Substance into Respiratory Tract, Via Natural or Artificial Opening (ICD-10-PCS; principal; 2017-07-12)
DX: C34.91 Malignant neoplasm of unspecified part of right bronchus or lung (principal); J96.91 Respiratory failure, unspecified with hypoxia; J18.9 Pneumonia, unspecified organism; T17.890A Other foreign object in other parts of respiratory tract causing asphyxiation, initial encounter; I11.0 Hypertensive heart disease with heart failure; J44.0 Chronic obstructive pulmonary disease with (acute) lower respiratory infection; R64 Cachexia; I50.9 Heart failure, unspecified; R16.1 Splenomegaly, not elsewhere classified; J98.19 Other pulmonary collapse; M84.48XA Pathological fracture, other site, initial encounter for fracture; F03.90 Unspecified dementia, unspecified severity, without behavioral disturbance, psychotic disturbance, mood disturbance, and anxiety; K74.60 Unspecified cirrhosis of liver; R59.0 Localized enlarged lymph nodes; K59.00 Constipation, unspecified; Z66 Do not resuscitate; R26.2 Difficulty in walking, not elsewhere classified; I25.10 Atherosclerotic heart disease of native coronary artery without angina pectoris; Z51.5 Encounter for palliative care; Z68.26 Body mass index [BMI] 26.0-26.9, adult; Z85.038 Personal history of other malignant neoplasm of large intestine; Z90.49 Acquired absence of other specified parts of digestive tract; Z87.891 Personal history of nicotine dependence

== ENCOUNTER 2017-07-17 12:28 | Inpatient (IN) | payer OTHER ==
[2017-07-17] MEDS ORDERED: Morphine PCA 1 mg/ml (25ml) 25 ML IV PRN (12:38)
[2017-07-17] MEDS ORDERED: Albuterol 0.5% Inhal Sol (2.5 mg/0.5 ml) UD IH PRN (12:40)
[2017-07-17 20:18] VITALS: BP 108/73; PULSE 68; RESP 18; BMI 27.3
[2017-07-17] MEDS ORDERED: Influenza Vaccine 60 mcg/0.5 mL SYR (4YR UP) IM ONE (20:18)
[2017-07-17] MEDS ORDERED: Pneumococcal 23-Valent Vaccine IM ONE (20:18)
--- NOTE | 2017-07-18 08:40 | PN ---
DATE: 07/18/2017 PULMONARY NOTE SUBJECTIVE: Patient is currently lethargic. She is arousable. When aroused, she does have labored breathing. OBJECTIVE: VITALS (Last noted in the computer): Temperature is 97.9, pulse 68, respirations 18, blood pressure 108/73. Oxygen saturation last noted on nasal cannula in the chart - 100%. HEENT: Normocephalic, atraumatic. No JVD. CARDIOVASCULAR: Systolic ejection murmur at the lower left sternal border. No S3 gallop. LUNGS: Slight improvement in the breath sounds - right upper lobe. Minimal bilateral rhonchi. No wheezing. EXTREMITIES: No clubbing, cyanosis or edema. Calves are nontender to palpation. GI: Abdomen is soft, nontender, and nondistended. Bowel sounds are positive. SKIN: No acute rash. NEUROLOGIC: Limited at the present time. IMPRESSION: 1. Probable advanced lung cancer. 2. Mucous plugging - right lung. 3. Mild bronchospasm. 4. Rule out underlying pneumonia. 5. History of advanced colon cancer, status post right hemicolectomy. PLAN: The patient is currently lethargic, but arousable. She remains extremely weak appearing. When she was aroused, she did have labored breathing. Last oxygen saturation noted in the chart - 100%. I did discuss the case with the night nurse at length. The patient has now been transitioned to hospice. She is currently on nebulizer treatments - only on a p.r.n. basis. She is also on a morphine drip. Unfortunately, the future status/prognosis for this elderly patient remains very poor. All are aware. At this point in time, there is no additional pulmonary intervention which is needed or warranted. Please call me for any additional pulmonary questions with this patient. Thank you for allowing me to participate in the care of this patient. Harry Campos MD [facility]
[2017-07-18] MEDS ORDERED: Morphine PCA 1 mg/ml (25ml) 25 ML IV PRN (09:37)
--- NOTE | 2017-07-18 10:31 | CP.PCM.PN ---
Subjective - Date & Time of Evaluation Date of Evaluation: 07/18/17 Time of Evaluation: 11:00 - Subjective Subjective: Reacts to painful stimuli. Breathing labored, irregular. 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 Lorazepam (Ativan) 1 mg IVP Q8H PRN; Protocol PRN Reason: Anxiety Last Admin: 07/18/17 07:43 Dose: 1 mg Scopolamine (Transderm-Scop) 1 patch TD Q3D [facility] Last Admin: 07/17/17 13:00 Dose: 1 patch - Constitutional Appears: Chronically Ill - Head Exam Head Exam: NORMAL INSPECTION - Eye Exam Additional comments: sluggish - ENT Exam ENT Exam: Mucous Membranes Dry - Respiratory Exam Respiratory Exam: Decreased Breath Sounds Additional comments: irregular breathing pattern - Cardiovascular Exam Cardiovascular Exam: Tachycardia, +S1, +S2 - GI/Abdominal Exam GI & Abdominal Exam: Soft, Hypoactive Bowel Sounds - Extremities Exam Additional comments: lower extremities cool - Back Exam Back Exam: NORMAL INSPECTION - Neurological Exam Neurological Exam: Altered - Skin Skin Exam: Dry, Pallor Assessment and Plan - Assessment and Plan (Free Text) Assessment: 82 year old female with hsoty of colon cancer new finding of lung mass, mediastinal adenopathy, liver lesions, right hemothorax who is admitted under [facility] hospice services for management of dyspnea and agitation. Breathing irregular, labored, tachycardia Family at bedside. Signs of impending explained. End of life counseling, psychosocial support given. 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 Time spent with family providing end of life counseling, 20 minutes Plan: Increase Morphine infusion to 2mg/hr, contoius dosing Ativan 1 mg IV as needed for agitation. Tylenol 650 mg RC for fever over 100F Scopolamine transdermal patch. End of life counseling
--- NOTE | 2017-07-18 11:30 | HP ---
HISTORY OF PRESENT ILLNESS: This is an 82-year-old female who is coming into the hospital and was found to have a lung mass. The patient was seen by Oncology. The patient's family was informed about the probable lung cancer with mets. The family elected to make a comfort care and no aggressive intervention regarding diagnosis and treatment was pursued. The patient is currently in the hospice at this point and has admitted as an inpatient-hospice. She is tachypneic, not able to give much information. She is on a morphine drip. Review of symptoms is limited. I did review the patient's initial H and P and discharge summary. I do agree with the H and P. The patient is going to continue with the morphine drip. REVIEW OF SYMPTOMS: Not able to be obtained because of the patient's underlying illness. SOCIAL HISTORY: The patient is a former smoker. She denies alcohol or drugs. ALLERGIES: SHE HAS NO KNOWN DRUG ALLERGIES. HOME MEDICATIONS: Currently, she is on morphine, and the inpatient medications have been reviewed. PAST SURGICAL HISTORY: Right colectomy. PAST MEDICAL HISTORY: 1. Cirrhosis. 2. Splenomegaly. 3. Pleural effusion. 4. Colon cancer with right hemicolectomy. 5. T11 vertebral lesion. 6. Mediastinal adenopathy. 7. Right lung mass. PHYSICAL EXAMINATION: VITAL SIGNS: Temperature is 97.9, pulse is 68, blood pressure is 108/73, and respirations are 18. GENERAL: The patient is lying in bed, flat, comfortable. HEENT: No oral lesion. Anicteric sclerae. Moist mucosa. NECK: No JVD, adenopathy, or thyromegaly. CARDIOVASCULAR: S1 and S2, regular. No murmurs, rubs, or gallops. LUNGS: Clear to auscultation bilaterally. No wheeze, rales, or rhonchi. ABDOMEN: Bowel sounds are positive, soft, nontender and nondistended. EXTREMITIES: No cyanosis, clubbing or edema. LABS: None. RADIOLOGY: None. EKG: None. ASSESSMENT: 1. Right lung mass, 4.8 x 4.4 cm. 2. Probable lung cancer. 3. Mediastinal adenopathy. 4. Splenomegaly. 5. Cirrhosis. 6. T11 vertebral fracture. 7. History of colon cancer. 8. Right pleural effusion. 9. Do not resuscitate/do not intubate. PLAN: The patient is admitted as hospice. She is comfortable. She is on Ativan for anxiety and agitation. She is on morphine drip. She is receiving scopolamine patch for secretion. She is on Tylenol. She is currently DNR/DNI. Geovani Freeman MD
[2017-07-18 18:52] VITALS: TEMP 100.2
--- NOTE | 2017-07-18 20:05 | CP.PCM.PRO ---
Pronouncement of Note - Clinical Findings Physical Exam: No Response Verbal/Painful Stimuli, Absent Peripheral Pulses{ Carotid & Femoral}, Absent Heart & Breath Sounds, No Pupillary Light Reflex, No Corneal Reflex, Pupils Fixed & Dilated, Absence of Vital Signs - Pronouncement Time Time of Pronouncement of : 19:41 - Notifications Pronouncement Notifications: Family Notified, Atending Notified (.) Rehab Director Notified: No - Autopsy Autopsy Requested: No - [place] [id number]
== END 2017-07-18 19:45 | DRG 181 ==
LOC: 5RNO 12:28
PROVIDERS: ADMIT Internal Medicine Nephrology; ATTEND Internal Medicine Nephrology
DX: C34.91 Malignant neoplasm of unspecified part of right bronchus or lung (principal); J90 Pleural effusion, not elsewhere classified; T17.890A Other foreign object in other parts of respiratory tract causing asphyxiation, initial encounter; M84.48XA Pathological fracture, other site, initial encounter for fracture; R16.1 Splenomegaly, not elsewhere classified; J94.2 Hemothorax; K74.60 Unspecified cirrhosis of liver; Z51.5 Encounter for palliative care; Z66 Do not resuscitate; R59.0 Localized enlarged lymph nodes; J98.01 Acute bronchospasm; Z85.038 Personal history of other malignant neoplasm of large intestine; Z90.49 Acquired absence of other specified parts of digestive tract; Z87.891 Personal history of nicotine dependence